=== PATIENT | female | born 1970 | race Caucasian/White ===

== ENCOUNTER 2016-10-09 14:38 | Emergency (ER) | payer BC ==
[2016-10-09] MEDS ORDERED: PROCHLORPERAZINE 5 MG/ML 2 ML VIAL ONE (15:06)
[2016-10-09] MEDS ORDERED: HYDROCODONE/ACETAMINOPHEN 5/325MG TABLET ONE (15:06)
[2016-10-09] MEDS ORDERED: FENTANYL 100 MCG/2 ML VIAL ONE (15:06)
[2016-10-09] MEDS ORDERED: DIPHENHYDRAMINE HCL 50 MG/1 ML VIAL ONE (16:09)
[2016-10-09] MEDS ORDERED: MORPHINE SULFATE 2 MG/ML SYRINGE ONE (16:10)
[2016-10-09] MEDS ORDERED: MORPHINE SULFATE 4 MG/ML SYRINGE ONE (16:10)
[2016-10-09 16:17] LABS: URINE BILIRUBIN NEGATIVE (NEGATIVE); URINE BLOOD 4+ (NEGATIVE); URINE GLUCOSE (UA) NEGATIVE (NEGATIVE); URINE LEUKOCYTE ESTERASE NEGATIVE (NEGATIVE); URINE NITRITE NEGATIVE (NEGATIVE); URINE PROTEIN 1+ (NEGATIVE); URINE UROBILINOGEN NORMAL (0-1 mg/dl)
[2016-10-09 16:18] LABS: URINE APPEARANCE CLOUDY; URINE COLOR AMBER
[2016-10-09 16:26] LABS: URINE RBC 30-40 /hpf
[2016-10-09 16:27] LABS: URINE BACTERIA 2+
--- NOTE | 2016-10-09 16:27 | US ---
Exam: Limited left renal ultrasound COMPARISON: None INDICATION: Left flank pain, . History of stones. Findings: Limited left renal ultrasound was obtained. Left kidney measures 10.5 cm in length. There is mild to moderate left-sided hydronephrosis. The proximal left ureter is dilated. No definite ureteral stone is identified. The mid and distal ureter are not visualized. Resistive index is 0.73. Urinary bladder contained 23 mL prevoid. Neither ureteral jet was identified. There is no significant postvoid residual. IMPRESSION: Mild to moderate left-sided hydronephrosis. Findings were called to Dr. Cuong Crystal 1723 hours 10/09/2016.
[2016-10-09] MEDS ORDERED: NITROFURANTOIN/NITROFURAN MAC 100 MG CAPSULE ONE (17:21)
== END 2016-10-09 17:36 | disposition home or self-care (01) ==
LOC: ED 14:38
DX: O26.893 Other specified pregnancy related conditions, third trimester (principal); N20.0 Calculus of kidney; Z87.442 Personal history of urinary calculi; Z3A.29 29 weeks gestation of pregnancy